=== PATIENT | male | born 1985 ===

== ENCOUNTER 2021-09-29 20:35 | Emergency (ER) | payer SELFPAY ==
[~2021-09-29] VITALS: Ht 164 cm; Wt 67.0 kg
--- NOTE | 2021-09-29 20:53 | ED Head Injury ---
General Stated Complaint: HEAD INJURY Source: patient Exam Limitations: no limitations (LEYDA ARELLANO) History of Present Illness Date Seen by Provider: Sep 29, 2021 Time Seen by Provider: 20:50 Initial Comments Patient is a 36-year-old male who is speaking who presents ED with head pain, confusion and dizziness. Symptoms started about a month ago after he fell. States he fell on hardwood floor. Patient states he slipped hitting the back part of his head. He had no loss of consciousness or blood thinners. Since then he has been having intermittent dizziness head pressure and states he feels confused at times. Symptoms have remained the same over the past month. He denies being seen medically after the fall. Denies of any nausea, vomiting, visual visual changes, unilateral muscle weakness or sensory changes, difficulty speaking, chest pain, shortness of breath, neck pain. Denies take anything for pain. History of anxiety. Reports increased stress. (LEYDA ARELLANO) Allergies and Home Medications Patient Home Medication List Home Medication List Reviewed: Yes (LEYDA ARELLANO) Review of Systems Review of Systems Constitutional: No chills, No diaphoresis, No malaise, No weakness Eyes: Denies Blurred Vision, Denies Decreased Acuity Ears, Nose, Mouth, Throat: denies ear pain, denies ear discharge Respiratory: No cough, No dyspnea on exertion Cardiovascular: No chest pain Gastrointestinal: No abdominal pain, No diarrhea, No nausea, No vomiting Genitourinary: No decreased output, No discharge Musculoskeletal: No back pain, No joint pain, No joint swelling, No muscle pain Skin: No change in color, No change in hair/nails Psychiatric/Neurological: Headache, Other (Confusion) (LEYDA ARELLANO) All Other Systems Reviewed Negative Unless Noted: Yes (LEYDA ARELLANO) Physical Exam Vital Signs Vital Signs - First Documented 09/29/21 20:40 Temp 36.8 Pulse 77 Resp 18 B/P (MAP) 132/86 (101) Pulse Ox 97 O2 Delivery Room Air (ISABEL ECHEVERRIA DO) Vital Signs Capillary Refill : (LEYDA ARELLANO) Height, Weight, BMI Height: '" Weight: lbs. oz. kg; BMI Method: General Appearance: WD/WN, no apparent distress HEENT: PERRL/EOMI, normal ENT inspection, TMs normal, pharynx normal, other (Posterior head discomfort without swelling, bruising or redness) Neck: non-tender, full range of motion, supple, normal inspection Cardiovascular: regular rate, rhythm, no edema, no gallop, no JVD, no murmur Respiratory: chest non-tender, lungs clear, normal breath sounds, no respi ratory distress, no accessory muscle use Gastrointestinal: normal bowel sounds, non tender, soft, no organomegaly Back: normal inspection, no CVA tenderness, no vertebral tenderness Extremities: normal range of motion, non-tender, normal inspection, no pedal edema Crainal Nerves: normal hearing, normal speech, PERRL Coordination/Gait: normal finger to nose, normal gait Motor/Sensory: no motor deficit, no sensory deficit Skin: normal color, warm/dry (LEYDA ARELLANO) [place] Coma Score Best Eye Response: (4) Open Spontaneously Best Verbal Response: (5) Oriented Best Motor Response: (6) Obeys Commands [place] Total: 15 (LEYDA ARELLANO) Progress/Results/Core Measures Results/Orders Vital Signs/I&O 09/29/21 09/29/21 20:40 21:47 Temp 36.8 Pulse 77 75 Resp 18 18 B/P (MAP) 132/86 (101) 127/85 Pulse Ox 97 97 O2 Delivery Room Air Room Air (ISABEL ECHEVERRIA DO) Departure Communication (PCP) Patient presents the ED with concussion-like symptoms. This have progressively stayed the same since an injury 1 month ago after hitting the back part of his head. Patient without any focal neural deficits. dizziness, confusion are patient's main complaint. Patient alert and orient x3. GCS 15. speaking use rn renal here. CT scan the head was negative for acute abnormality. Symptoms appear to be related to a concussion. I strongly recommend rest until symptoms start to improve. Recommend anti-inflammatories for pain. Outpatient follow-up your primary care physician for further evaluation. Would likely benefit follow-up with concussion clinic or neurology if symptoms progress. Patient has no cervical midline tenderness or neck pain (LEYDA ARELLANO) Impression Primary Impression: Concussion Disposition: 01 HOME, SELF-CARE Condition: Stable Departure-Patient Inst. Decision time for Depature: 21:45 (LEYDA ARELLANO) Referrals: [facility] Patient Instructions: Concussion in Adults Work/School Note: Work Release Form Date Seen in the Emergency Department: Sep 29, 2021 Return to Work: Oct 04, 2021 ATTENDING PHYSICIAN NOTE: I WAS PHYSICALLY PRESENT ER PHYSICIAN, BUT I WAS NOT INVOLVED IN ANY DECISION MAKING OR ANY CARE OF THIS PATIENT. (ISABEL ECHEVERRIA DO) LEYDA ARELLANO Sep 29, 2021 20:53 ISABEL ECHEVERRIA DO Sep 29, 2021 23:50
--- NOTE | 2021-09-29 21:24 | Diagnostic Imaging Report ---
INDICATION: Fall with head pain. TECHNIQUE: Multiple contiguous axial images were obtained through the brain without the use of intravenous contrast. Auto Exposure Controls were utilized during the CT exam to meet ALARA standards for radiation dose reduction. There is no prior study for comparison. There are no extra-axial fluid collections. No intracranial hemorrhage. No intracranial mass or mass effect. No midline shift. The ventricles are normal in size and position. There were no focal parenchymal abnormalities in the brain. Calvarial windows appear unremarkable. Visualized portions of the sinuses and orbits are unremarkable. IMPRESSION: Negative noncontrast brain CT. Dictated by: Dictated on workstation # [id number]
[2021-09-29 21:47] VITALS: BP 127/85
== END 2021-09-29 21:55 | disposition home or self-care (01) ==
LOC: ER 20:38
DX: S06.0X0A Concussion without loss of consciousness, initial encounter (principal); R40.2140 Coma scale, eyes open, spontaneous, unspecified time; R40.2250 Coma scale, best verbal response, oriented, unspecified time; R40.2360 Coma scale, best motor response, obeys commands, unspecified time; Z28.310 Unvaccinated for COVID-19; W01.198A Fall on same level from slipping, tripping and stumbling with subsequent striking against other object, initial encounter
CPT/HCPCS: 70450